=== PATIENT | female | born 2000 | race Caucasian/White ===

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

== ENCOUNTER → 2025-09-01 12:29 | Outpatient (BNVA) | payer BC, SELFPAY | PROVIDERS: Family Provider General Practice; PCP General Practice; Referring Provider General Practice; Visit Provider Internal Medicine Cardiovascular Disease | DX: R07.9 Chest pain, unspecified (principal); R94.31 Abnormal electrocardiogram [ECG] [EKG]; I49.8 Other specified cardiac arrhythmias | CPT/HCPCS: 93005 ==